=== PATIENT | female | born 1960 | race Caucasian/White ===

== ENCOUNTER 2016-10-14 07:20 | Outpatient (RCR) | payer MEDICARE, MEDICAID ==
[~2016-10-14] VITALS: Ht 30.5 cm; Wt 0.5 kg
[~2016-10-14 07:20] MED LIST: ALBUTEROL2.5 MG/3 M INH; ATIVAN2 MG ORAL; ATIVAN2 MG/1 ML IV; BENADRYL50 MG ORAL; CAL MAG ZINC +1 EACH PO; COLACE100 MG ORAL; COLACE250 MG ORAL; DIOVAN80 MG ORAL; EPIPEN 2-P0.3 MG/0.3 IM; ESTRADIOL0.5 MG PO; KEPPRA500 MG ORAL; LISINOPRIL10 MG ORAL; NEXIUM40 MG ORAL; NITROFURANTOIN100 M2 ORAL; NORETHINDRONE0.35 MG PO; PHENAZOPYRIDIN100 MG ORAL; TOPIRAMATE25 MG ORAL; TRAZODONE HCL100 MG ORAL; TRAZODONE HCL150 MG ORAL; TRILEPTAL150 MG ORAL; UNOBMED; ZANTAC150 MG ORAL
[2016-10-14] MEDS ORDERED: NS 550ML IV ONE (07:21)
[2016-10-14] MEDS ORDERED: Succinylcholine 20mg/ml 10ml vial ONE (07:21)
[2016-10-14] MEDS ORDERED: Methohexital Sodium Syr 100mg/10ml IVP ONE (07:21)
[2016-10-14] MEDS ORDERED: Diazepam 10mg/2ml Inj ONE (07:21)
[2016-10-14] MEDS ORDERED: Norco 5mg/325mg tab ONE (07:21)
== END 2016-10-20 | disposition home or self-care (01) ==
LOC: ECT 07:20
DX: F33.2 Major depressive disorder, recurrent severe without psychotic features (principal); F34.1 Dysthymic disorder; F60.9 Personality disorder, unspecified
CPT/HCPCS: 90870; J0330; J3360; J7040

== ENCOUNTER 2016-10-28 10:53 | Emergency (ER) | payer MEDICARE, OTHER ==
[~2016-10-28] VITALS: Ht 172.7 cm; Wt 77.1 kg
[2016-10-28 11:31] VITALS: BP 164/80
--- NOTE | 2016-10-28 12:15 | Emergency Room Report ---
History of Present Illness General Chief Complaint: Multiple Trauma/Fall Source: Patient Present Illness HPI Patient reports that she slipped and fell around 9 AM today. Plan on her right forearm. And then rolled back onto her right shoulder and struck the back of her head on a pole. She denies shortness of breath, dizziness or prodrome of syncope prior to the fall, states this is mechanical, slipped on wet ground as it has been raining today. She complains of pain in the right forearm, as well as pain in the right wrist with movement of fingers or wrist. States that there is some mild discomfort in her shoulder as well as pain in the back of her head where she hit the ground. There was no loss of consciousness and there was no nausea vomiting or shakes or dizziness, headache reported. Allergies: Coded Allergies: OXCARBAZEPINE (Verified Allergy, Severe, Rash, 12/05/15) sob CEPHALEXIN (Verified Allergy, Intermediate, Rash, 06/01/16) Itching The patient was put onto this medication due to UTI. The patient broke out in a rash and itcing all over her body CARBAMAZEPINE (Verified Allergy, Mild, Rash, 08/23/15) CLINDAMYCIN (Verified Allergy, Mild, Rash, 08/23/15) ERYTHROMYCIN BASE (Verified Allergy, Mild, Rash, 08/23/15) PENICILLINS (Verified Allergy, Mild, Rash, 08/23/15) PROCHLORPERAZINE (Verified Allergy, Mild, Shortness of Breath, 08/23/15) RASH SULFA (SULFONAMIDE ANTIBIOTICS) (Verified Allergy, Mild, Rash, 08/23/15) ASPIRIN (Unverified Allergy, Unknown, 03/19/16) Uncoded Allergies: BEES,WASPS (Allergy, Mild, Shortness of Breath, 08/23/15) HIVES Patient History Limited by: language barrier Past Medical History: see triage record Social History: Denies: alcohol use, smoking : 0 Para: 0 Immunizations: UTD Reviewed Nursing Documentation: PMH: Agreed Nursing Documentation-PMH Hx Hypertension: No Hx Pacemaker: No Hx Asthma: Yes Hx COPD: Yes Hx Diabetes: No Hx Cancer: No Hx Gastrointestinal Problems: No Hx Dialysis: No Hx Neurological Problems: No Hx Cerebrovascular Accident: No Hx Seizures: Yes Review of Systems Musculoskeletal: Reports: joint pain, joint swelling, muscle pain, muscle stiffness All Other Systems: negative except mentioned in HPI Physical Exam Vital Signs Date Time Temp Pulse Resp B/P Pulse Ox O2 Delivery O2 Flow Rate FiO2 10/28/16 11:15 99.1 113 16 164/80 97 Room Air Sp02 EP Interpretation: reviewed, abnormal - tachycardia General Appearance: well appearing, no apparent distress, alert Head: atraumatic Eyes: bilateral eye normal inspection ENT: normal ENT inspection, hearing grossly normal, normal voice Neck: normal inspection, full range of motion, supple, no bony tend Respiratory: normal inspection, lungs clear, normal breath sounds, no respiratory distress, no retraction, no wheezing Cardiovascular #1: no edema, tachycardia Gastrointestinal: normal inspection, normal bowel sounds, non tender, soft, no guarding, no hernia Genitourinary: no CVA tenderness Musculoskeletal: back normal, normal range of motion, tender - on palpation of the right forearm, mild swelling and abrasion on lateral aspect aprpeciated., no deformity, goof sensation and pulses distally. Neurologic: normal inspection, alert, responsive, speech normal Psychiatric: normal inspection, judgement/insight normal, mood/affect normal Skin: normal inspection, normal color, no rash Medical Decision Making Diagnostic Impression: Primary Impression: Multiple injuries due to trauma Additional Impressions: Fall Forearm abrasion Forearm injuries ER Course Patient here with mechanical fall, she is history of seizures but did not appear to have a seizure prior to the fall. Some bruising, abrasion to the right forearm but no obvious deformity, neurovascularly intact. We'll do some screening x-rays of the forearm and wrist. Provide pain control, sling and ice to the area. Disposition based on x-ray with results. X-rays demonstrate no significant soft tissue swelling, fracture, deformity, subluxation. Patient will be given a sling for comfort, as well as treated with ice, ibuprofen and rest. Patient given discharge summary as well as prescription for ibuprofen and followup. Other X-Ray Diagnostic Results Other X-Ray Diagnostic Results : X-Ray Ordered: hand and forearm Date: Oct 28, 2016 Time: 13:14 EP Interpretation: Yes Findings: no fractures, no dislocation, no soft tissue swelling Number of Views: 4 Reevaluation Time: 13:13 Last Vital Signs Date Time Temp Pulse Resp B/P Pulse Ox O2 Delivery O2 Flow Rate FiO2 10/28/16 11:31 99.1 16 164/80 97 Room Air 10/28/16 11:15 113 Status: improved Disposition: HOME, SELF-CARE Condition: Stable Scripts Ibuprofen* (MOTRIN*) 600 Mg Tablet 600 MG ORAL Q6H Y for For Pain, #30 TAB Prov: Hayder Biswas MD 10/28/16 Referrals: NON PHYSICIAN (PCP) Hayder Biswas MD Oct 28, 2016 12:15
[2016-10-28] MEDS ORDERED: IBUPROFEN600 MG ORAL (13:12)
[2016-10-28 13:27] VITALS: BP 139/87
[2016-10-28 13:34] VITALS: BP 139/87
--- NOTE | 2016-10-28 13:55 | Diagnostic Imaging Report ---
Indications: Fall, right wrist trauma, pain Technique: 3 views right wrist. Findings: Comparison: None No fracture, dislocation, joint space widening , surrounding soft tissue swelling/foreign body/other abnormality, or other acute changes are identified. IMPRESSION: No evidence of acute injury to the right wrist.
--- NOTE | 2016-11-10 14:10 | Diagnostic Imaging Report ---
Indications: Fall, right forearm trauma, pain Technique: 2 views right forearm. Findings: Comparison: None No fracture, dislocation, joint space widening or effusion , surrounding soft tissue swelling/foreign body/gas, or other acute changes are identified. IMPRESSION: No evidence of acute injury to the right forearm.
== END 2016-10-28 13:35 | disposition home or self-care (01) ==
LOC: EMR 11:30
DX: S50.811A Abrasion of right forearm, initial encounter (principal); M25.531 Pain in right wrist; R51 Headache; W19.XXXA Unspecified fall, initial encounter; Y93.9 Activity, unspecified; Y92.9 Unspecified place or not applicable; Z88.6 Allergy status to analgesic agent; Z88.2 Allergy status to sulfonamides; Z91.030 Bee allergy status
CPT/HCPCS: 99283

== ENCOUNTER 2016-11-09 06:08 | Outpatient (RCR) | payer MEDICARE, MEDICAID ==
--- NOTE | 2016-10-21 14:15 | IOP Daily Group Progress Note ---
IOP Daily Group Progress Note Treatment Plan/Target Problem: Date: Oct 21, 2016 Problem: depression Group Reflections - Wednesday: group 1 (9:40am-10:25am) Therapy Focus/Approach of Group: process Goal(s) of Group: identify mood, verbalize current thoughts and mood Observations: anxious, attentive, engaged, open, participated Staff Intervention: assessed for safety/suicidality, assessed pt's current mood , facilitated discussion Staff Intervention: Process: Therapist asked patients to share their mood today, and any thoughts/ concerns they may have. Therapist also provided a safe place for patients to express themselves. Therapist also assessed for SI, HI, and safety. Response/Progress Noted: Pt reports she feels "agitated, anxious and sad" about her housing situation. She doesn't feel she can trust the people who are responsible for her housing situation, but didn't want to share more about it. Donna Gutierrez Oct 21, 2016 14:15
[~2016-11-09] VITALS: Ht 172.7 cm; Wt 64.0 kg
[~2016-11-09 06:08] MED LIST changes: +IBUPROFEN600 MG ORAL
[2016-11-09] MEDS ORDERED: Succinylcholine 20mg/ml 10ml vial ONE (06:09)
[2016-11-09] MEDS ORDERED: Norco 5mg/325mg tab ONE (06:09)
[2016-11-09] MEDS ORDERED: Diazepam 10mg/2ml Inj ONE (06:09)
[2016-11-09] MEDS ORDERED: NS 550ML IV ONE (06:09)
[2016-11-09] MEDS ORDERED: Methohexital Sodium Syr 100mg/10ml IVP ONE (06:09)
[2016-11-09] MEDS ORDERED: Norco 5mg/325mg tab ORAL PRN (08:59)
--- NOTE | 2016-11-11 12:56 | IOP Daily Group Progress Note ---
IOP Daily Group Progress Note Treatment Plan/Target Problem: Date: Nov 11, 2016 Problem: depression Group Reflections - Wednesday: group 1 (9:40am-10:25am) Therapy Focus/Approach of Group: process Goal(s) of Group: identify mood, verbalize current thoughts and mood Observations: attentive, engaged, fidgety, open, participated spontaneously, positive mood, smiled when appropriate Staff Intervention: assessed for safety/suicidality, assessed pt's current mood , facilitated discussion Staff Intervention: Process: Therapist asked patients to share their mood and any thoughts/ concerns they might have on their mind. For patients experiencing a negative mood, therapist asked what might help improve their mood. Therapist assessed for SI, HI, and safety. Response/Progress Noted: Pt reports she feels "very glad to be here today". She also shared, "I'm doing my best to contain my energy...I'm managing it as it needs to be. She had ECT treatment earlier this week and feels energized and "good" as a result. She was concerned for and encouraging of others as they shared. Donna Gutierrez Nov 11, 2016 12:56
--- NOTE | 2016-11-12 14:34 | IOP Daily Group Progress Note ---
IOP Daily Group Progress Note Treatment Plan/Target Problem: Date: Nov 12, 2016 Problem: depression Group Reflections - : group 1 (9:40am-10:25am) Therapy Focus/Approach of Group: process Goal(s) of Group: identify mood, verbalize current thoughts and mood Observations: attentive, engaged, open, participated spontaneously, positive mood, smiled when appropriate Staff Intervention: assessed for safety/suicidality, assessed pt's current mood , facilitated discussion Staff Intervention: Process: Therapist asked patients to share their mood and any thoughts/ concerns they might have on their mind. For patients experiencing a negative mood, therapist asked, what might help improve their mood. Therapist also asked a follow up question of, what gives your life meaning? Therapist assessed for SI, HI, and safety. Response/Progress Noted: Pt reports she "feels good, I'm happy to be here, the tammy is beautiful and the breeze feels good." Pt maintained a positive mood throughout the group. 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
--- NOTE | 2016-11-26 10:58 | IOP Daily Group Progress Note ---
IOP Daily Group Progress Note Treatment Plan/Target Problem: Date: Oct 21, 2016 Problem: impaired thoughts Program: reflections Group Reflections - Wednesday: group 3 (11:30am-12:15pm) Therapy Focus/Approach of Group: symptoms Goal(s) of Group: coping tools for symptoms, symptom management Observations: engaged, open, participated Staff Intervention: assessed for safety/suicidality, assessed pt's current mood , facilitated discussion, prompted pt Response/Progress Noted: Pt participated in a CBT (Cognitive Behavioral Therapy) exercise, which again focused on 'Gratitude'. The Pt was able to verbalize one phrase out of a list that touched them the most, which allowed the Pt to feel fewer symptoms of depression. TRISTIN NICOLE MANUFACTURING LEADER Nov 26, 2016 10:58
--- NOTE | 2016-11-26 11:10 | IOP Daily Group Progress Note ---
IOP Daily Group Progress Note Treatment Plan/Target Problem: Date: Oct 21, 2016 Problem: depression Program: reflections Group Reflections - Wednesday: group 2 (10:35am-11:20am) Therapy Focus/Approach of Group: skills Goal(s) of Group: explore relationships to family, identify activities to improve mood, reminiscing to improve mood Observations: engaged, open, participated Staff Intervention: assessed for safety/suicidality, assessed pt's current mood , facilitated discussion, prompted reminiscence Response/Progress Noted: Pt actively participated in a psychoeducational group led by the Therapist on the topic of their belief systems drawn from the quiz developed by [facility] titled, "How Healthy are my Core Beliefs". The exercise helped the pt removed address negative messages they received as a child and challenged the inner critic in order to redirect these messages into something more positive over time. The exercise reframed the pt's focus which allowed for a shift in their mood in a more productive manner. TRISTIN NICOLE Nov 26, 2016 11:10
== END 2016-11-17 | disposition home or self-care (01) ==
LOC: ECT 06:08
DX: F33.2 Major depressive disorder, recurrent severe without psychotic features (principal)
CPT/HCPCS: 90870; J0330; J3360; J7040

== ENCOUNTER 2016-12-07 05:27 | Outpatient (RCR) | payer MEDICARE, MEDICAID ==
[~2016-12-07] VITALS: Ht 172.7 cm; Wt 64.0 kg
[2016-12-07] MEDS ORDERED: Succinylcholine 20mg/ml 10ml vial ONE (05:28)
[2016-12-07] MEDS ORDERED: Methohexital Sodium Syr 100mg/10ml IVP ONE (05:28)
[2016-12-07] MEDS ORDERED: Norco 5mg/325mg tab ONE (05:28)
[2016-12-07] MEDS ORDERED: Diazepam 10mg/2ml Inj ONE (05:28)
[2016-12-07] MEDS ORDERED: NS 550ML IV ONE (05:28)
[2016-12-07] MEDS ORDERED: Norco 5mg/325mg tab ORAL PRN (08:33)
[2016-12-07] MEDS ORDERED: Atropine Sulfate 0.4mg/ml inj IVP PRN (08:33)
--- NOTE | 2016-12-18 13:56 | IOP Daily Group Progress Note ---
IOP Daily Group Progress Note Treatment Plan/Target Problem: Date: Dec 18, 2016 Problem: depression Group Reflections - Wednesday: group 1 (9:40am-10:25am) Therapy Focus/Approach of Group: process Goal(s) of Group: communication skills, identify mood, impact of current issues on mood, positive thoughts to improve mood, verbalize current thoughts and mood Observations: attentive, constricted affect, depressed mood, difficulty engaging in discussion, responded to prompts Staff Intervention: assessed for safety/suicidality, assessed pt's current mood , encouraged patient participation, clarified pt issues, facilitated discussion , prompted pt, provided psycho-education, provided support, summarized, validated feelings Staff Intervention: Process: Therapist has patients identify current mood and feelings. Therapist provided individuals a safe and comfortable place where they can work The pt was attentive but slightly withdrawn, Pt had no self disclosure today despite several prompts from senior health physics technician. This was senior health physics technician's work with this pt in group, LORA GANN Dec 18, 2016 13:56
== END 2016-12-18 | disposition home or self-care (01) ==
LOC: ECT 05:27
DX: F33.2 Major depressive disorder, recurrent severe without psychotic features (principal)
CPT/HCPCS: 90870; J0330; J3360; J7040

== ENCOUNTER 2016-12-23 08:54 | Outpatient (RCR) | payer MEDICARE, MEDICAID ==
[~2016-12-23] VITALS: Ht 172.7 cm; Wt 64.0 kg
[2016-12-23] MEDS ORDERED: Norco 5mg/325mg tab ONE (08:55)
[2016-12-23] MEDS ORDERED: Diazepam 10mg/2ml Inj ONE (08:55)
[2016-12-23] MEDS ORDERED: Succinylcholine 20mg/ml 10ml vial ONE (08:55)
[2016-12-23] MEDS ORDERED: NS 550ML IV ONE (08:55)
[2016-12-23] MEDS ORDERED: Methohexital Sodium Syr 100mg/10ml IVP ONE (08:55)
[2016-12-23] MEDS ORDERED: Norco 5mg/325mg tab ORAL PRN (12:30)
--- NOTE | 2016-12-25 16:08 | IOP Daily Group Progress Note ---
IOP Daily Group Progress Note Treatment Plan/Target Problem: Date: Dec 25, 2016 Problem: depression Program: reflections Group Reflections - Wednesday: group 1 (9:40am-10:25am) Therapy Focus/Approach of Group: process Goal(s) of Group: communication skills, coping tools for symptoms, identify mood, impact of current issues on mood, verbalize current thoughts and mood Observations: attentive, constricted affect, participated Staff Intervention: encouraged patient participation, facilitated discussion, prompted pt, provided support, summarized Response/Progress Noted: Process: Therapist has patients identify current mood and feelings. Therapist provided individuals a safe and comfortable place where they can work out problems and emotional issues. Pt was attentive and gave supportive feedback to peers but no self disclosure despite prompts. LORA GANN Dec 25, 2016 16:08
--- NOTE | 2016-12-30 14:21 | IOP Daily Group Progress Note ---
IOP Daily Group Progress Note Treatment Plan/Target Problem: Date: Dec 30, 2016 Problem: impaired thoughts Program: reflections Group Reflections - Wednesday: group 1 (9:40am-10:25am) Therapy Focus/Approach of Group: process Goal(s) of Group: assertiveness skills, decreasing isolation Observations: engaged Staff Intervention: assessed for safety/suicidality, assessed pt's current mood Staff Intervention: In a peculiar but generally appropriate form of attention seeking, pt. puts pictures of her grandfather on display in the group. She states this is in honor of Passover. She is invited to tell the Passover story, but declines. Response/Progress Noted: Pt. reports being in generally good spirits. HAMIDA FISH Dec 30, 2016 14:21
--- NOTE | 2017-01-07 16:34 | IOP Daily Group Progress Note ---
IOP Daily Group Progress Note Treatment Plan/Target Problem: Date: Jan 07, 2017 Problem: depression Program: reflections Group Reflections - : group 2 (10:35am-11:20am) Therapy Focus/Approach of Group: skills Goal(s) of Group: communication skills, identify activities to improve mood, socialization skills, support systems Observations: anxious, attentive, depressed mood, participated Staff Intervention: encouraged patient participation, facilitated discussion, normalized feelings, provided psycho-education, provided support, summarized, validated feelings Staff Intervention: Skills Group. Group discussion on addiction, triggers, 12 step meeting , support network and coping skills. The pt was attentive and provided supportive feedback to her peers in group> LORA GANN Jan 07, 2017 16:34
--- NOTE | 2017-01-07 18:04 | IOP Daily Group Progress Note ---
IOP Daily Group Progress Note Treatment Plan/Target Problem: Date: Jan 07, 2017 Problem: impaired thoughts Program: reflections Group Reflections - : group 3 (11:30am-12:15pm) Therapy Focus/Approach of Group: symptoms Goal(s) of Group: anger management, anxiety reduction, assertiveness skills, communication skills, coping tools for symptoms, coping with change, counteracting negative thinking, identify activities to improve mood, identifying strengths, impact of current issues on mood, improving self esteem, increasing independence, interpersonal relationships, positive thoughts to improve mood, socialization skills, stress reduction, support systems, verbalize current thoughts and mood Observations: anxious, attentive, blunted, concrete thinking, depressed mood, engaged, focused, nervous, open, participated spontaneously, pressured speech, responded to prompts Staff Intervention: assessed for safety/suicidality, assessed pt's current mood , assisted identifying coping tools, assisted with problem solving, encouraged patient participation, facilitated discussion, normalized feelings, prompted pt , provided psycho-education, provided reassurance, provided support, reflective listening, reframed, summarized, validated feelings Staff Intervention: Pt participated in Symptoms Management Group today. She was attentive, open, and mod-active in her involvement in group discussion of Anxiety about Changes on our lives. Pt says that one of her common problems is feeling Anger about changes in her life and health over which she feels she has little control. The group discussed how this can frequently lead to fear based Anxiety over how to cope. Pt shared mod openly and, also gave supportive feedback to other group members. HAMIDA LYNN Jan 07, 2017 18:04
--- NOTE | 2017-01-13 13:58 | IOP Daily Group Progress Note ---
IOP Daily Group Progress Note Treatment Plan/Target Problem: Date: Jan 13, 2017 Problem: depression Program: reflections Group Reflections - Wednesday: group 2 (10:35am-11:20am) Therapy Goal(s) of Group: explore relationships to family, identifying strengths Observations: anxious, attentive, depressed mood, focused Staff Intervention: provided psycho-education, provided reassurance, provided redirection Staff Intervention: Pt spoke about how she avoids dealing with issues resulting from life changes and how she uses group to face some of her issues, such as isolation and neglecting her social needs at times. Assisted pt in feelings her feelings in a safe space so as to orientate herself in herself with her feelings and emotions and not be consumed by them but to stand more firmly in them and take her bearing from them. Response/Progress Noted: " Art helps me cope." SERENA RAMIREZ Jan 13, 2017 13:58
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
--- NOTE | 2017-01-14 14:45 | IOP Daily Group Progress Note ---
IOP Daily Group Progress Note Treatment Plan/Target Problem: Date: Jan 14, 2017 Problem: depression Program: reflections Group Reflections - : group 2 (10:35am-11:20am) Therapy Goal(s) of Group: coping tools for symptoms, identifying strengths, identify triggers to symptoms Observations: engaged, focused, restless, tangential thoughts Staff Intervention: provided psycho-education, provided reassurance, validated feelings Staff Intervention: Explored have to deal with difficult people in pts life, also explored identifying healthy patterns as well as toxic patterns and exchanges. Worked on plans and strategies to set and maintain more healthy boundaries. Also processed some painful feelings from the past that pt has been avoiding that flare up at times recently. Response/Progress Noted: " At times have a hard time making sense out of my past." SERENA RAMIREZ Jan 14, 2017 14:45
--- NOTE | 2017-01-14 14:47 | IOP Daily Group Progress Note ---
IOP Daily Group Progress Note Treatment Plan/Target Problem: Date: Jan 14, 2017 Problem: depression Program: reflections Group Reflections - : group 3 (11:30am-12:15pm) Therapy Goal(s) of Group: anxiety reduction, identify mood Observations: engaged, focused Staff Intervention: provided psycho-education, provided support, reframed Staff Intervention: Explored have to deal with difficult people in pts life, also explored identifying healthy patterns as well as toxic patterns and exchanges. Worked on plans and strategies to set and maintain more healthy boundaries. Also processed some painful feelings from the past that pt has been avoiding that flare up at times recently. Response/Progress Noted: "Others stories my me understand my self better and find some peace." SERENA RAMIREZ Jan 14, 2017 14:47
--- NOTE | 2017-01-15 14:46 | IOP Daily Group Progress Note ---
IOP Daily Group Progress Note Treatment Plan/Target Problem: Date: Jan 15, 2017 Problem: depression Program: reflections Group Reflections - Wednesday: group 1 (9:40am-10:25am) Therapy Focus/Approach of Group: process Goal(s) of Group: explore relationships to family, identify activities to improve mood, identify mood, impact of current issues on mood, interpersonal relationships, positive thoughts to improve mood, verbalize current thoughts and mood Observations: anxious, concrete thinking, constricted affect, participated Staff Intervention: assessed for safety/suicidality, assessed pt's current mood , clarified pt issues, facilitated discussion, provided support, reflective listening, validated feelings Staff Intervention: Process: Therapist has patients identify current mood and feelings. Therapist provided individuals a safe and comfortable place where they can work out problems and emotional issues. Pt stated "I am feeling really good today and grateful for just being here. I am looking forward to enjoying this weekend" LORA GANN Jan 15, 2017 14:46
--- NOTE | 2017-01-15 15:32 | IOP Daily Group Progress Note ---
IOP Daily Group Progress Note Treatment Plan/Target Problem: Date: Jan 15, 2017 Problem: depression Program: reflections Group Reflections - Wednesday: group 2 (10:35am-11:20am) Therapy Goal(s) of Group: identify mood, identify triggers to symptoms, improving self esteem, verbalize current thoughts and mood Observations: made insightful comments, positive mood, responded to prompts, smiled when appropriate Staff Intervention: provided psycho-education, provided support, validated feelings Staff Intervention: Pt spoke about what some of his interest are and how he joseph now and what worked for him in the pass. Response/Progress Noted: " I play tennies, that help me deal with the stress that comes up some times. " SERENA RAMIREZ Jan 15, 2017 15:32
--- NOTE | 2017-01-15 15:46 | IOP Daily Group Progress Note ---
IOP Daily Group Progress Note Treatment Plan/Target Problem: Date: Jan 15, 2017 Problem: depression, impaired thoughts Group Reflections - Wednesday: group 2 (10:35am-11:20am) Therapy Goal(s) of Group: anxiety reduction, identify triggers to symptoms, reminiscing to improve mood, verbalize current thoughts and mood Observations: anxious, distracted, open, participated Staff Intervention: normalized feelings, provided psycho-education, provided reassurance, validated feelings Staff Intervention: pt gave support and feedback to group members and received feedback and support from group members and section leader screen printing. Response/Progress Noted: " I have many things that I want to do with my life, one of them is to live long." SERENA RAMIREZ Jan 15, 2017 15:46
--- NOTE | 2017-01-15 15:48 | IOP Daily Group Progress Note ---
IOP Daily Group Progress Note Treatment Plan/Target Problem: Date: Jan 15, 2017 Problem: depression Program: reflections Group Reflections - Wednesday: group 3 (11:30am-12:15pm) Therapy Goal(s) of Group: identify mood, improving self esteem, symptom management Observations: focused Staff Intervention: provided psycho-education, validated feelings Staff Intervention: pt gave support and feedback to group members and received feedback and support from group members and insight leader. Response/Progress Noted: " I do not want to be forgotten" insight leader and group members pointed out to pt how unique and dear she is. SERENA RAMIREZ Jan 15, 2017 15:48
== END 2017-01-17 | disposition home or self-care (01) ==
LOC: ECT 08:54
DX: F33.2 Major depressive disorder, recurrent severe without psychotic features (principal)
CPT/HCPCS: 90870; J0330; J3360; J7040

== ENCOUNTER 2017-01-20 05:22 | Outpatient (RCR) | payer MEDICARE, MEDICAID ==
--- NOTE | 2017-01-18 15:27 | IOP Daily Group Progress Note ---
IOP Daily Group Progress Note Treatment Plan/Target Problem: Date: January 18, 2017 Problem: depression Program: reflections Group Reflections - Wednesday: group 2 (10:35am-11:20am) Therapy Goal(s) of Group: coping with change, goal setting Observations: focused, open, participated spontaneously Staff Intervention: provided reassurance, provided support, reframed Staff Intervention: clinical nurse leader and group members provided PT with feedback and support in processing feeling from the past that distress her at times and interfere with with her well being. Pt provide other group members with useful, insightful and empathetic feedback and support. Provide pt with the emotional space and environment to access and process painful feelings and emotions that are connect with deep rooted past issues she continues to struggle with suc as feeling of inadequacy and sadness very other miss-perception of her over the years. Response/Progress Noted: " I do not brandi others view of me as fact, the way I sometimes used to" SERENA RAMIREZ January 18, 2017 15:27
--- NOTE | 2017-01-18 15:29 | IOP Daily Group Progress Note ---
IOP Daily Group Progress Note Treatment Plan/Target Problem: Date: January 18, 2017 Problem: depression Program: reflections Group Reflections - Wednesday: group 3 (11:30am-12:15pm) Therapy Goal(s) of Group: assertiveness skills, identify triggers to symptoms Observations: disengaged, focused, open Staff Intervention: assisted with problem solving, provided psycho-education, provided reassurance, provided support, reframed, validated feelings Staff Intervention: donor services team leader and group members provided PT with feedback and support in processing feeling from the past that distress her at times and interfere with with her well being. Pt provide other group members with useful, insightful and empathetic feedback and support. Provide pt with the emotional space and environment to access and process painful feelings and emotions that are connect with deep rooted past issues she continues to struggle with such as feelings sadness. Response/Progress Noted: " I have more ways to deal with my feeling and to get my self through my moods in a heathy way, such as CBT and reframing as well as rational self-talk. SERENA RAMIREZ January 18, 2017 15:29
[~2017-01-20] VITALS: Ht 172.7 cm; Wt 64.0 kg
[2017-01-20] MEDS ORDERED: Succinylcholine 20mg/ml 10ml vial ONE (05:23)
[2017-01-20] MEDS ORDERED: Diazepam 10mg/2ml Inj ONE (05:23)
[2017-01-20] MEDS ORDERED: Methohexital Sodium Syr 100mg/10ml IVP ONE (05:23)
[2017-01-20] MEDS ORDERED: Norco 5mg/325mg tab ONE (05:23)
[2017-01-20] MEDS ORDERED: NS 550ML IV ONE (05:23)
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
--- NOTE | 2017-01-22 15:18 | IOP Daily Group Progress Note ---
IOP Daily Group Progress Note Treatment Plan/Target Problem: Date: January 22, 2017 Problem: depression, impaired thoughts Group Reflections - Wednesday: group 2 (10:35am-11:20am) Therapy Goal(s) of Group: coping tools for symptoms, explore relationships to family, identify activities to improve mood, identifying strengths, identify triggers to symptoms, impact of current issues on mood Observations: agitated, animated, anxious, guarded, irritable, restless Staff Intervention: provided support, reframed Staff Intervention: Group members spoke about what people are most important to them and what they most deeply desires to say to them. Pt said that she has no one in her life and that she tried to kill herself twice before. Pt spoke about how people stone lathe operator her on how she looks and acts and how they talk behind her back. sports leadership instructor and group members attempted to provide patient with support and reassurance and compliment her on her style. However pt perceived the group support as making things worse. Response/Progress Noted: "I ddi not want to come today, I wake up in a bad mood. Everything is making it worse." SERENA RAMIREZ January 22, 2017 15:18
--- NOTE | 2017-01-28 14:37 | IOP Daily Group Progress Note ---
IOP Daily Group Progress Note Treatment Plan/Target Problem: Date: January 28, 2017 Problem: depression, impaired thoughts Group Reflections - : group 2 (10:35am-11:20am) Therapy Goal(s) of Group: communication skills, coping with change, goal setting, identifying strengths, improving self esteem, reminiscing to improve mood Observations: guarded, open, participated spontaneously, positive mood Staff Intervention: provided redirection, provided support, reframed Staff Intervention: Patient discussed what is most dear and meaningful to her. How does she nurture it and how does she as he stay on course. Response/Progress Noted: " the [place]. My mind is just free and at peace there." SERENA RAMIREZ January 28, 2017 14:37
--- NOTE | 2017-01-28 16:28 | IOP Daily Group Progress Note ---
IOP Daily Group Progress Note Treatment Plan/Target Problem: Date: January 28, 2017 Problem: depression Group Reflections - : group 3 (11:30am-12:15pm) Therapy Focus/Approach of Group: symptoms Goal(s) of Group: coping tools for symptoms, coping with change, explore relationships to family, impact of current issues on mood, interpersonal relationships, stress reduction, symptom management Observations: blunted, depressed mood, disengaged, flat affect, lethargic Staff Intervention: assessed for safety/suicidality, assessed pt's current mood , facilitated discussion Staff Intervention: Therapist introduced himself to the group, generated a discussion about current mood and feelings, and queried what irvin members to the group and how it helps them. Therapist provided a safe environment for self-expression and assessed for SI, HI, and safety. Response/Progress Noted: Patient shared she has been dealing with "depression and anxiety all my life" and that she has been "in and out of programs since the age of 7." Patient disclosed she received a diagnosis of autism spectrum disorder, after being "misdiagnosed for years." Michael Moon HEARING AIDE TECHNICIAN January 28, 2017 16:28
--- NOTE | 2017-01-29 14:03 | IOP Daily Group Progress Note ---
IOP Daily Group Progress Note Treatment Plan/Target Problem: Date: January 29, 2017 Problem: depression Program: reflections Group Reflections - Wednesday: group 2 (10:35am-11:20am) Therapy Goal(s) of Group: coping tools for symptoms, coping with change, identifying strengths, identify triggers to symptoms, interpersonal relationships Observations: concrete thinking, distracted Staff Intervention: provided psycho-education, provided redirection, reflective listening Staff Intervention: Explored some of the roots of the symptoms that pt is suffering from and struggling with, such as depression and anxiety. account leader and group members provide PT with the emotional attunement, room and support to access and process a portion of some of the feelings that are at the core of pt symptoms and update some of the accompanying schemas. Response/Progress Noted: " Only when I am dancing or at the [employer] do I feel at ease." SERENA RAMIREZ January 29, 2017 14:03
--- NOTE | 2017-01-29 14:04 | IOP Daily Group Progress Note ---
IOP Daily Group Progress Note Treatment Plan/Target Problem: Date: January 29, 2017 Problem: depression Program: reflections Group Reflections - Wednesday: group 1 (9:40am-10:25am) Therapy Focus/Approach of Group: process Goal(s) of Group: identify mood, impact of current issues on mood, interpersonal relationships, verbalize current thoughts and mood Observations: concrete thinking, constricted affect, depressed mood, participated Staff Intervention: assessed for safety/suicidality, assessed pt's current mood , clarified pt issues, facilitated discussion, provided support, reflective listening Staff Intervention: Process: Therapist has patients identify current mood and feelings. Therapist provided individuals a safe and comfortable place where they can work out problems and emotional issues. Therapist encouraged patients to provide feedback and support to each other. The pt stated "I am feeling better today but this has been a very difficult week for me" LORA GANN January 29, 2017 14:04
--- NOTE | 2017-01-29 14:07 | IOP Daily Group Progress Note ---
IOP Daily Group Progress Note Treatment Plan/Target Problem: Date: January 29, 2017 Problem: depression Group Reflections - Wednesday: group 3 (11:30am-12:15pm) Therapy Goal(s) of Group: coping with change, increasing independence, symptom management Observations: attentive, focused, open, sad Staff Intervention: prompted pt, reflective listening, validated feelings, validated progress Staff Intervention: Pt continued to explored some of the roots of the symptoms that pt is suffering from and struggling with, such as depression and anxiety. clinical trial leader and group members provide PT with the emotional attunement, room and support to access and process a portion of some of the feelings that are at the core of pt symptoms and update some of the accompanying schemas. Response/Progress Noted: " I have to sometimes tell myself that it is not as bad as I make it out to be and Practice more active and positive self talk." SERENA RAMIREZ January 29, 2017 14:07
--- NOTE | 2017-02-01 16:41 | IOP Daily Group Progress Note ---
IOP Daily Group Progress Note Treatment Plan/Target Problem: Date: February 01, 2017 Problem: depression Program: reflections Group Reflections - Wednesday: group 2 (10:35am-11:20am) Therapy Goal(s) of Group: anxiety reduction, coping tools for symptoms, coping with change, identifying strengths, reminiscing to improve mood, stress reduction Observations: anxious, blunted, fidgety, guarded Staff Intervention: provided redirection, provided support, taught relaxation skills, validated feelings, validated progress Staff Intervention: Group members explored how they were conditioned since childhood to push down painful feeling and issues; explore ways to talk feeling and issues out instead of acting them out or having them get our attention through symptoms. Also explored what issues and symptoms were by the holiday weekend. Response/Progress Noted: " I felt empty and lonely so i went to [facility] and irvin a heart in the sand. Someone played a song " every little thing will be alrigh" with there instrument and I felt the song was meant for me. and I started dancing. " SERENA RAMIREZ February 01, 2017 16:41
--- NOTE | 2017-02-01 16:44 | IOP Daily Group Progress Note ---
IOP Daily Group Progress Note Treatment Plan/Target Problem: Date: February 01, 2017 Problem: depression Group Reflections - Wednesday: group 3 (11:30am-12:15pm) Therapy Goal(s) of Group: coping tools for symptoms, counteracting negative thinking, decreasing isolation, establishing appropriate boundaries, explore relationships to family, identifying strengths, impact of current issues on mood , improving self esteem, support systems, weekend review Observations: disengaged, distracted, flat affect, withdrawn Staff Intervention: provided psycho-education, provided reassurance, provided technical support assistant Intervention: Group members explored how they were conditioned since childhood to push down painful feeling and issues; explore ways to talk feeling and issues out instead of acting them out or having them get our attention through symptoms. Also explored what issues and symptoms were by the holiday weekend. Response/Progress Noted: " Just feel empty at times, felt this way ever since I can remember." SERENA RAMIREZ February 01, 2017 16:44
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
--- NOTE | 2017-02-08 15:34 | IOP Daily Group Progress Note ---
IOP Daily Group Progress Note Treatment Plan/Target Problem: Problem: depression Program: reflections Group Reflections - Wednesday: group 2 (10:35am-11:20am) Therapy Goal(s) of Group: assertiveness skills, coping with change, establishing appropriate boundaries, identify activities to improve mood, identify mood, identify triggers to symptoms, socialization skills, stress reduction, support systems Observations: anxious, delusions, distracted, focused, manic, participated spontaneously Staff Intervention: assisted identifying coping tools, assisted with problem solving, clarified pt issues, prompted reminiscence, provided psycho-education, provided reassurance, reframed, set limits, summarized Staff Intervention: Pt explored what hurts her the most; what is she most hurt about, in pain about , what she what does not want to talk about but must in order for her to really deal with her pain and what mot deeply troubles her so that real emotional, development l and psychology, and social healing can occur, as well as take place in her life. Response/Progress Noted: " Sometime, I fear being so out of place, and people talking about me. ... and my temper at time, saying the wrong thing at the wrong time." SERENA RAMIREZ February 08, 2017 15:34
--- NOTE | 2017-02-08 15:37 | IOP Daily Group Progress Note ---
IOP Daily Group Progress Note Treatment Plan/Target Problem: Date: February 08, 2017 Problem: depression Program: reflections Group Reflections - Wednesday: group 3 (11:30am-12:15pm) Therapy Goal(s) of Group: coping tools for symptoms, decreasing isolation, identify activities to improve mood, identify triggers to symptoms, interpersonal relationships, reminiscing to improve mood Observations: anxious, depressed mood, distracted, focused, open, participated , participated spontaneously Staff Intervention: assisted with identifying symptoms, assisted with problem solving, prompted reminiscence, provided psycho-education, provided reassurance , validated feelings Staff Intervention: Pt explored what hurts her the most; what is she most hurt about, in pain about , what she what does not want to talk about but must in order for her to really deal with her pain and what mot deeply troubles her so that real emotional, development l and psychology, and social healing can occur, as well as take place in her life. Response/Progress Noted: "Just constantly being out of place, I can say that I am alright with it but sometimes how people look at me and treat me really hurts. The group is right, I am getting better at accepting my self." SERENA RAMIREZ February 08, 2017 15:37
[2017-02-12] MEDS ORDERED: Methohexital Sodium Syr 100mg/10ml IVP ONE (07:00)
[2017-02-12] MEDS ORDERED: Norco 5mg/325mg tab ONE (07:00)
[2017-02-12] MEDS ORDERED: Succinylcholine 20mg/ml 10ml vial ONE (07:00)
[2017-02-12] MEDS ORDERED: NS 550ML IV ONE (07:00)
[2017-02-12] MEDS ORDERED: Diazepam 10mg/2ml Inj ONE (07:00)
[2017-02-12] MEDS ORDERED: Norco 5mg/325mg tab ORAL PRN (08:35)
== END 2017-02-17 | disposition home or self-care (01) ==
LOC: ECT 05:22
DX: F33.2 Major depressive disorder, recurrent severe without psychotic features (principal)
CPT/HCPCS: 90870; J0330; J3360; J7040

== ENCOUNTER 2017-03-10 07:39 | Outpatient (RCR) | payer MEDICARE, MEDICAID ==
[~2017-03-10] VITALS: Ht 172.7 cm; Wt 64.0 kg
[2017-03-10] MEDS ORDERED: Norco 5mg/325mg tab ONE (07:40)
[2017-03-10] MEDS ORDERED: NS 550ML IV ONE (07:40)
[2017-03-10] MEDS ORDERED: Methohexital Sodium Syr 100mg/10ml IVP ONE (07:40)
[2017-03-10] MEDS ORDERED: Succinylcholine 20mg/ml 10ml vial ONE (07:40)
[2017-03-10] MEDS ORDERED: Diazepam 10mg/2ml Inj ONE (07:40)
[2017-03-10] MEDS ORDERED: Norco 5mg/325mg tab ORAL PRN (10:46)
--- NOTE | 2017-03-17 13:00 | IOP Daily Group Progress Note ---
IOP Daily Group Progress Note Treatment Plan/Target Problem: Problem: depression Group Reflections - Wednesday: group 2 (10:35am-11:20am) Therapy Focus/Approach of Group: process Goal(s) of Group: art therapy, goal setting, socialization skills Observations: depressed mood, participated, tearful Staff Intervention: assessed for safety/suicidality, assessed pt's current mood , encouraged patient participation, facilitated discussion, prompted pt, provided support, reflective listening, validated feelings Staff Intervention: Group members were encouraged to read the poem, "What is Success?" by Dane and were then asked to create artwork that reflected his or her own definition of success. Discussion followed. Response/Progress Noted: Lauren presented with a depressed mood. feels unsuccessful because she never had children. "I just wanted to pass my DNA a long & I can't." Patient feels everything is "unstable" in her life. Is frustrated with her living situation and expressed a desire to . Therapist assessed for suicidal thoughts and plan. Denies a need for inpatient treatment. Patient reports she can keep self safe, "but [place] sucks anyway." Became tearful when peer offered genuine compliments and explained why he liked Lauren. Therapist will continue to monitor patient's mood and ability to keep self safe. JIM ROONEY Mar 17, 2017 13:00
== END 2017-03-19 | disposition home or self-care (01) ==
LOC: ECT 07:39
DX: F33.2 Major depressive disorder, recurrent severe without psychotic features (principal)
CPT/HCPCS: 90870; J0330; J3360; J7040

== ENCOUNTER 2017-03-31 07:40 | Outpatient (RCR) | payer MEDICARE, MEDICAID ==
--- NOTE | 2017-03-21 20:31 | Reflections ---
02/25/2017 SUBJECTIVE: The patient is pleasant, calm and cooperative with interview. Follows directions. Denies any new complaints. MENTAL STATUS EVALUATION: Alert and oriented to self and situation. Mood is anxious. Affect is restricted. Thought process is linear. Cognition is intact. Impulse control, insight, and judgment is partially impaired. DIAGNOSIS: Major depression. PLAN: Continue with current management. Continue to monitor symptoms and behavior. Medications reviewed. Chart reviewed. Case discussed with staff. No new symptoms, sedation, or side effects. Otherwise, we will continue to monitor the case. Marc Rowan M.D. DR: RACQUEL JOB#: [id number] CC: ENIO
[~2017-03-31] VITALS: Ht 172.7 cm; Wt 64.0 kg
[2017-03-31] MEDS ORDERED: Norco 5mg/325mg tab ONE ×2 (07:41)
[2017-03-31] MEDS ORDERED: NS 550ML IV ONE ×2 (07:41)
[2017-03-31] MEDS ORDERED: Succinylcholine 20mg/ml 10ml vial ONE ×2 (07:41)
[2017-03-31] MEDS ORDERED: Methohexital Sodium Syr 100mg/10ml IVP ONE ×2 (07:41)
[2017-03-31] MEDS ORDERED: Diazepam 10mg/2ml Inj ONE ×2 (07:41)
[2017-03-31] MEDS ORDERED: Norco 5mg/325mg tab ORAL PRN (09:57)
== END 2017-04-19 | disposition home or self-care (01) ==
LOC: ECT 07:40
DX: F33.2 Major depressive disorder, recurrent severe without psychotic features (principal)
CPT/HCPCS: 90870; J0330; J3360; J7040

== ENCOUNTER 2017-04-28 04:52 | Outpatient (RCR) | payer MEDICARE, MEDICAID ==
[~2017-04-28] VITALS: Ht 172.7 cm; Wt 64.0 kg
[2017-04-28] MEDS ORDERED: Norco 5mg/325mg tab ONE (04:53)
[2017-04-28] MEDS ORDERED: NS 550ML IV ONE (04:53)
[2017-04-28] MEDS ORDERED: Methohexital Sodium Syr 100mg/10ml IVP ONE (04:53)
[2017-04-28] MEDS ORDERED: Succinylcholine 20mg/ml 10ml vial ONE (04:53)
[2017-04-28] MEDS ORDERED: Norco 5mg/325mg tab ORAL PRN (10:21)
--- NOTE | 2017-05-14 15:44 | IOP Daily Group Progress Note ---
IOP Daily Group Progress Note Treatment Plan/Target Problem: Date: May 14, 2017 Problem: depression Program: reflections Group - Wednesday: group 2 (10:35am-11:20am) Therapy Focus/Approach of Group: skills Goal(s) of Group: anxiety reduction, decreasing isolation, impact of current issues on mood, verbalize current thoughts and mood Observations: active listening skills, agitated, depressed mood, engaged, made insightful comments, negatively focused, participated, responded to prompts, smiled when appropriate Staff Intervention: assisted identifying coping tools, clarified pt issues, facilitated discussion, prompted pt, provided psycho-education, provided reassurance, provided support, reflective listening, summarized, validated feelings Staff Intervention: Therapist encouraged Pt to identify at least two negative feeling words and attempt to follow this up with the triggers and coping skills in order to counteract these emotions. Response/Progress Noted: Wednesday05-14-2017: (Group 2): *SKILLS GROUP/TRAUMA RECOVERY PART 1* The Pt actively participated in a psychoeducational group, the 1st half of the weekly PTSD (Posttraumatic Stress Disorder) / Trauma Recovery Group. The Cognitive Behavioral Therapy (CBT) exercise allowed the Pt to choose from a list of feeling words in order to pin-point any negative emotions they experience on a daily basis followed by identify the triggers of these emotions. The exercise benefited the Pt as evidenced by the Pt verbalizing, Depression and rage. TRISTIN NICOLE May 14, 2017 15:44
[2017-05-19] MEDS ORDERED: Succinylcholine 20mg/ml 10ml vial ONE (07:00)
[2017-05-19] MEDS ORDERED: Norco 5mg/325mg tab ONE (07:00)
[2017-05-19] MEDS ORDERED: Methohexital Sodium Syr 100mg/10ml IVP ONE (07:00)
[2017-05-19] MEDS ORDERED: NS 550ML IV ONE (07:00)
[2017-05-19] MEDS ORDERED: Norco 5mg/325mg tab ORAL PRN (08:32)
[2017-05-19] MEDS ORDERED: Atropine Sulfate 0.4mg/ml inj IVP PRN (08:32)
--- NOTE | 2017-05-19 13:39 | IOP Daily Group Progress Note ---
IOP Daily Group Progress Note Treatment Plan/Target Problem: Problem: impaired thoughts Group Reflections - Wednesday: group 2 (10:35am-11:20am) Therapy Focus/Approach of Group: process Goal(s) of Group: anxiety reduction, explore relationships to family, identifying strengths, socialization skills Observations: depressed mood, engaged, low energy, sad Staff Intervention: encouraged patient participation, facilitated discussion, provided support, validated feelings Staff Intervention: Therapist provided a handout on how one communicates and expresses love. Discussion followed. Group members were asked to draw or write about how they express love. Goal of group was to increase insight into one's own behaviors and increase insight into relationship dynamics. Response/Progress Noted: Lauren shared that giving gifts to others was important to her. "I like to buy someone a candy bar to let them know I was thinking about them throughout the day." Was able to share and work on her artwork. However, appeared depressed and low energy throughout group. Will continue helping patient identify and implement coping skills for her symptoms. JIM ROONEY May 19, 2017 13:39
== END 2017-05-20 | disposition home or self-care (01) ==
LOC: ECT 04:52
DX: F33.2 Major depressive disorder, recurrent severe without psychotic features (principal)
CPT/HCPCS: 90870; J0330; J3360; J7040

== ENCOUNTER 2017-05-21 13:48 | Outpatient (CLI) | payer MEDICARE, OTHER ==
--- NOTE | 2017-05-21 15:20 | Diagnostic Imaging Report ---
Indication: Back pain Technique: MRI examination of the Lumbar spine was performed in a 1.5 Shanita magnet. Sequences obtained include sagittal and axial T1 and T2 fast spin echo, and sagittal STIR. No IV gadolinium was given Comparison: none Findings: L4-5 there is narrowing and desiccation of the disc, mild in degree. There is a fairly wide based disc protrusion that involves the central, right paracentral and right lateral aspect of the disc resulting in narrowing of the right lateral recess and stenosis of the right neural foramen. There is visualized abutting and slightly compression of the exiting right L4 nerve root as well as the right traversing L5 nerve root. Moderate hypertrophy facets noted at this level. L5-S1 shows moderate disc narrowing and desiccation. There is a wide based circumferential disc bulge present this level. Moderate facet arthropathy is present. There is moderate narrowing of the left neural foramen and left lateral recess. The L1-2, L2-3, L3-4 discs appear normal. Mild hypertrophy of the facets noted at these levels. Bone marrow signal is normal. Alignment is normal. The distal visualized part of the spinal cord is unremarkable. The tip of the conus medullaris noted at T12. Impression: L4-5 right-sided broad-based disc protrusion narrowing the right lateral recess and neural foramen compressing the traversing right L5 nerve root and the exiting right L4 nerve root. Moderate facet arthropathy. Broad-based circumferential disc bulge L5-S1. Moderate facet arthropathy. Moderate left lateral recess/foraminal stenosis.
== END 2017-05-21 15:48 | disposition home or self-care (01) ==
LOC: MRI 13:48
DX: M54.16 Radiculopathy, lumbar region (principal)
CPT/HCPCS: 72148

== ENCOUNTER 2017-06-09 07:20 | Outpatient (RCR) | payer MEDICARE, MEDICAID ==
[~2017-06-09] VITALS: Ht 30.5 cm; Wt 0.5 kg
[2017-06-09] MEDS ORDERED: Methohexital Sodium Syr 100mg/10ml IVP ONE (07:21)
[2017-06-09] MEDS ORDERED: Norco 5mg/325mg tab ONE (07:21)
[2017-06-09] MEDS ORDERED: Succinylcholine 20mg/ml 10ml vial ONE (07:21)
[2017-06-09] MEDS ORDERED: NS 500ML IV ONE (07:21)
[2017-06-09] MEDS ORDERED: Sodium Chloride 500ML 500 ML IV ONE (08:50)
[2017-06-09] MEDS ORDERED: Norco 5mg/325mg tab ORAL PRN (08:50)
--- NOTE | 2017-06-15 16:41 | IOP Daily Group Progress Note ---
IOP Daily Group Progress Note Treatment Plan/Target Problem: Date: Jun 15, 2017 Problem: depression Program: reflections Group Reflections - Wednesday: group 3 (11:30am-12:15pm) Therapy Focus/Approach of Group: symptoms Goal(s) of Group: coping tools for symptoms, coping with change, identify triggers to symptoms, symptom management, warning signs of decompensation Observations: anxious, constricted affect, focused, participated, self disclosing Staff Intervention: clarified pt issues, facilitated discussion, provided reassurance, provided support, summarized, validated feelings Staff Intervention: Symptoms Group- Focus on self-care, coping tools to improve activities of daily living and other parts of our life one would like to improve or change. The focus was on letting go of things we cannot control and taking active step in change things that are in our control. The pt discussed her current housing crisis. "I was evicted a month ago and I am currently staying at different friend homes. on a temporary basis but it is uncomfortable because I have to walk on egg shells. I finally found a work at the [facility] who seem to know what she is doing and I trust her. She is help me find housing and I just have to remain patient . Overall I am doing better than I was in the past. I know that losing my temper will not help the situation." LORA GANN Jun 15, 2017 16:41
== END 2017-06-19 | disposition home or self-care (01) ==
LOC: ECT 07:20
DX: F33.2 Major depressive disorder, recurrent severe without psychotic features (principal)
CPT/HCPCS: 90870; J0330; J3360; J7040

== ENCOUNTER 2017-07-07 06:51 | Outpatient (RCR) | payer MEDICARE, OTHER ==
[~2017-07-07] VITALS: Ht 33 cm; Wt 0.5 kg
[2017-07-07] MEDS ORDERED: NS 500ML IV ONE (06:52)
[2017-07-07] MEDS ORDERED: Succinylcholine 20mg/ml 10ml vial ONE (06:52)
[2017-07-07] MEDS ORDERED: Methohexital Sodium Syr 100mg/10ml IVP ONE (06:52)
[2017-07-07] MEDS ORDERED: Norco 5mg/325mg tab ONE (06:52)
[2017-07-07 09:22] VITALS: BP 158/89
[2017-07-07] MEDS ORDERED: Sodium Chloride 500ML 500 ML IV ONE (09:33)
--- NOTE | 2017-07-09 14:04 | IOP Daily Group Progress Note ---
IOP Daily Group Progress Note Treatment Plan/Target Problem: Date: Jul 09, 2017 Problem: depression Program: reflections Group Reflections - Wednesday: group 1 (9:40am-10:25am) Therapy Focus/Approach of Group: process Goal(s) of Group: identify mood, verbalize current thoughts and mood Response/Progress Noted: PLEASE DISREGARD. This draft done in error, should have been in IOP notes. BENEDICTO PAN Jul 09, 2017 14:04
--- NOTE | 2017-07-17 03:00 | Reflections ---
Date: 07/15/2017 SUBJECTIVE: The patient is withdrawn, guarded, anxious, and internally preoccupied. Denies any new complaints. MENTAL STATUS EVALUATION: Alert and oriented to self and situation. Mood is anxious. Affect is appropriate. Thought process is linear. Cognition is intact. Insight and judgment is fair. DIAGNOSIS: Major depression. PLAN: Continue with current management. No new symptoms, sedation, or side effects. Medications reviewed. Chart reviewed. Case discussed with staff. Marc Rowan M.D. DR: RACQUEL JOB#: [id number] CC: ENIO
--- NOTE | 2017-07-17 03:30 | Reflections ---
Date: 07/15/2017 SUBJECTIVE: The patient is doing fairly well. Compliant with care and follows directions. Denies any new complaints. MENTAL STATUS EVALUATION: Alert and oriented to self and situation. Mood is anxious. Affect is appropriate. Thought process is linear. Cognition is intact. Impulse control, insight, and judgment is fair. DIAGNOSIS: Major depression. PLAN: Continue with current management. Continue to monitor symptoms and behavior. Medications reviewed. Chart reviewed. Case discussed with staff. We will continue to monitor the case. Marc Rowan M.D. DR: RACQUEL JOB#: [id number] CC: ENIO
== END 2017-07-20 | disposition home or self-care (01) ==
LOC: ECT 06:51
DX: F33.2 Major depressive disorder, recurrent severe without psychotic features (principal)
CPT/HCPCS: 90870; J0330; J3360; J7040

== ENCOUNTER 2017-08-04 07:21 | Outpatient (RCR) | payer MEDICARE, MEDICAID ==
[~2017-08-04] VITALS: Ht 172.7 cm; Wt 64.0 kg
[2017-08-04] MEDS ORDERED: Methohexital Sodium Syr 100mg/10ml IVP ONE (07:22)
[2017-08-04] MEDS ORDERED: NS 500ML ONE (07:22)
[2017-08-04] MEDS ORDERED: Succinylcholine 20mg/ml 10ml vial ONE (07:22)
[2017-08-04] MEDS ORDERED: Norco 5mg/325mg tab ONE (07:22)
[2017-08-04 09:09] VITALS: BP 132/82
[2017-08-04] MEDS ORDERED: Norco 5mg/325mg tab ORAL PRN (09:24)
[2017-08-04] MEDS ORDERED: Sodium Chloride 500ML 500 ML IV ONE (09:24)
[2017-08-04 09:25] VITALS: BP 140/75
[2017-08-04 09:30] VITALS: BP 152/76
[2017-08-04 09:35] VITALS: BP 132/82
[2017-08-04 09:40] VITALS: BP 132/74
== END 2017-08-19 | disposition home or self-care (01) ==
LOC: ECT 07:21
DX: F33.2 Major depressive disorder, recurrent severe without psychotic features (principal)
CPT/HCPCS: 90870; J0330; J3360; J7040

== ENCOUNTER 2017-09-01 07:21 | Outpatient (RCR) | payer MEDICARE, MEDICAID ==
[~2017-09-01] VITALS: Ht 172.7 cm; Wt 64.0 kg
[2017-09-01] MEDS ORDERED: Methohexital Sodium Syr 100mg/10ml IVP ONE (07:22)
[2017-09-01] MEDS ORDERED: NS 500ML ONE (07:22)
[2017-09-01] MEDS ORDERED: Norco 5mg/325mg tab ONE (07:22)
[2017-09-01] MEDS ORDERED: Succinylcholine 20mg/ml 10ml vial ONE (07:22)
[2017-09-01 08:25] VITALS: BP 182/100
[2017-09-01] MEDS ORDERED: Sodium Chloride 500ML 500 ML IV ONE (09:11)
[2017-09-01] MEDS ORDERED: Norco 5mg/325mg tab ORAL PRN (09:11)
[2017-09-01 09:15] VITALS: BP 147/80
[2017-09-01 09:20] VITALS: BP 139/93
[2017-09-01 09:25] VITALS: BP 152/84
[2017-09-01 09:30] VITALS: BP 150/88
--- NOTE | 2017-09-06 13:48 | IOP Daily Group Progress Note ---
IOP Daily Group Progress Note Treatment Plan/Target Problem: Date: Sep 06, 2017 Problem: depression Program: reflections Group Reflections - Wednesday: group 1 (9:40am-10:25am) Therapy Focus/Approach of Group: process Goal(s) of Group: communication skills, decreasing isolation Observations: animated, manic Staff Intervention: facilitated discussion, provided psycho-education Response/Progress Noted: Pt. is elevated to the point of being almost hypo-manic. She is somewhat flippant. She says her goal is to "stay out of the Holiday Blues." Diomedese alludes to doing an OK job of that. She IDs a goal to continue working on this and to support peers. HAMIDA FISH Sep 06, 2017 13:48
--- NOTE | 2017-09-09 14:15 | IOP Daily Group Progress Note ---
IOP Daily Group Progress Note Treatment Plan/Target Problem: Date: Sep 09, 2017 Problem: impaired thoughts Program: reflections Group Reflections - : group 1 (9:40am-10:25am) Therapy Focus/Approach of Group: process Goal(s) of Group: explore relationships to family, identify activities to improve mood, identify mood, impact of current issues on mood, interpersonal relationships, positive thoughts to improve mood, verbalize current thoughts and mood Observations: animated, anxious, constricted affect, participated Staff Intervention: assessed for safety/suicidality, assessed pt's current mood , clarified pt issues, facilitated discussion, provided support, reflective listening, summarized Staff Intervention: Process: Therapist has patients identify current mood and feelings. Therapist provided individuals a safe and comfortable place where they can work out problems and emotional issues. The pt asked where she is emotionally between 1- 10 pt said she is at a 8. "I am doing good and I am looking forward to enjoying the holidays" LORA GANN Sep 09, 2017 14:15
--- NOTE | 2017-09-10 14:10 | IOP Daily Group Progress Note ---
IOP Daily Group Progress Note Treatment Plan/Target Problem: Date: Sep 10, 2017 Problem: impaired thoughts Program: reflections Group Reflections - Wednesday: group 1 (9:40am-10:25am) Therapy Focus/Approach of Group: process Goal(s) of Group: explore relationships to family, identify mood, impact of current issues on mood, interpersonal relationships, verbalize current thoughts and mood Observations: attentive, constricted affect, guarded, participated Staff Intervention: encouraged patient participation, facilitated discussion, provided support, summarized, validated feelings Staff Intervention: Process: Therapist has patients identify current mood and feelings. Therapist provided individuals a safe and comfortable place where they can work out problems and emotional issues. Therapist encouraged patients to provide feedback and support to each other. The pt stated "I am doing good today. I feel fortunate that I have a decent place to live not after going through a struggle the early part of this year. Things in the moment are really good." LORA GANN Sep 10, 2017 14:10
--- NOTE | 2017-09-15 16:10 | IOP Daily Group Progress Note ---
IOP Daily Group Progress Note Treatment Plan/Target Problem: Date: Sep 15, 2017 Problem: depression Program: reflections Group - Wednesday: group 2 (10:35am-11:20am) Therapy Focus/Approach of Group: skills Goal(s) of Group: communication skills, decreasing isolation, interpersonal relationships, support systems Observations: animated, anxious, depressed mood, engaged Staff Intervention: facilitated discussion, provided psycho-education Response/Progress Noted: Pt. non-verbally expresses her support of certain aspects of group Norms and Culture. She responds favorably to the idea that a review of Norms and Culture is, in part, designed to increase the level of compassion that all participants have for one another. HAMIDA FISH Sep 15, 2017 16:10
--- NOTE | 2017-09-15 16:18 | IOP Daily Group Progress Note ---
IOP Daily Group Progress Note Treatment Plan/Target Problem: Date: Sep 15, 2017 Problem: depression Program: reflections Group - Wednesday: group 3 (11:30am-12:15pm) Therapy Focus/Approach of Group: symptoms Goal(s) of Group: communication skills, counteracting negative thinking, decreasing isolation, interpersonal relationships, positive thoughts to improve mood, support systems Observations: anxious, depressed mood, engaged, focused, sad Staff Intervention: assessed pt's current mood, assisted identifying coping tools, assisted with identifying symptoms, assisted with problem solving, facilitated discussion, provided psycho-education, provided reassurance, provided support Response/Progress Noted: Pt. 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 Content of group focusses on the following main themes: need to involve an MD to evaluate physical conditions and both prescribe and refer as that professional sees fit, importance of patient keeping mind open to the possibility of a positive outcome (rather then get caught up in anxious and distorted predictions). Pt. receives positive feedback from continuous improvement facilitator for her supportive interactions with peers. HAMIDA FISH Sep 15, 2017 16:18
--- NOTE | 2017-09-16 14:52 | IOP Daily Group Progress Note ---
IOP Daily Group Progress Note Treatment Plan/Target Problem: Date: Sep 16, 2017 Problem: depression Program: reflections Group Reflections - : group 1 (9:40am-10:25am) Therapy Goal(s) of Group: coping tools for symptoms, symptom management Observations: attentive, depressed mood, negatively focused, participated spontaneously, participating actively, smiled when appropriate Staff Intervention: assessed for safety/suicidality, assisted identifying coping tools, facilitated discussion, provided psycho-education, provided support, reframed, validated feelings, validated progress Staff Intervention: Check in Group. Patients spoke about how they feel, what mood they are in and or any issue that they need support from the group in process and dealing with. Response/Progress Noted: insight leader and group members assisted patient in process feelings and in providing patient with acceptance and support. Patients response, I just get down this time of year. I feel it in the body. I try to keep things light from being overwhelmed and I'm managing so far. insight leader and group members provided patient with additional feedback and emotional attunement. Assessed patients safety, patient denied that they are exposing self to any dangerous behaviors, activities and or plan/intentions SERENA RAMIREZ Sep 16, 2017 14:52
--- NOTE | 2017-09-16 15:53 | IOP Daily Group Progress Note ---
IOP Daily Group Progress Note Treatment Plan/Target Problem: Date: Sep 16, 2017 Problem: depression Program: reflections Group Reflections - : group 2 (10:35am-11:20am) Therapy Focus/Approach of Group: skills Goal(s) of Group: explore relationships to family, interpersonal relationships , support systems Observations: animated, attentive, depressed mood, engaged, participated spontaneously Staff Intervention: facilitated discussion, provided support, validated progress Response/Progress Noted: Pt. volunteers to tell a "Rabbi story" designed to illustrate aspects of group norms and culture. She does so effectively, capturing the main themes and helping peers. She is given positive feedback for this. HAMIDA FISH Sep 16, 2017 15:53
--- NOTE | 2017-09-16 15:57 | IOP Daily Group Progress Note ---
IOP Daily Group Progress Note Treatment Plan/Target Problem: Date: Sep 16, 2017 Problem: depression, impaired thoughts Program: reflections Group Reflections - : group 3 (11:30am-12:15pm) Therapy Focus/Approach of Group: symptoms Goal(s) of Group: coping tools for symptoms, counteracting negative thinking, medication compliance, positive thoughts to improve mood Observations: attentive, depressed mood, irritable, resistant Staff Intervention: assisted identifying coping tools, assisted with identifying symptoms, assisted with problem solving, facilitated discussion, provided psycho-education Response/Progress Noted: During a discussion on co-morbidity of mental illness and substance use disorders, pt. insists that this is due to "self-medicating" and is quite resistant to accepting that the clinical evidence does not support this. HAMIDA FISH Sep 16, 2017 15:57
--- NOTE | 2017-09-17 14:39 | IOP Daily Group Progress Note ---
IOP Daily Group Progress Note Treatment Plan/Target Problem: Date: Sep 17, 2017 Problem: depression Program: reflections Group Reflections - Wednesday: group 1 (9:40am-10:25am) Therapy Focus/Approach of Group: process Goal(s) of Group: impact of current issues on mood, interpersonal relationships , verbalize current thoughts and mood Observations: anxious, attentive, concrete thinking, constricted affect, depressed mood, nervous, participated Staff Intervention: facilitated discussion, normalized feelings, provided support, summarized, validated feelings Response/Progress Noted: Process: Therapist has patients identify current mood and feelings. Therapist provided individuals a safe and comfortable place where they can work out problems and emotional issues. The pt stated "I am having chronic back pain for several week. It makes me tired and low energy. In the past it could trigger my depression. However I am more aware of my triggers and I am trying to use coping skills. This weekend I am having a new wildlife removal specialist come to my home on Wed. and Wednesday. So I won't be alone. " LORA GANN Sep 17, 2017 14:39
--- NOTE | 2017-09-17 16:21 | IOP Daily Group Progress Note ---
IOP Daily Group Progress Note Treatment Plan/Target Problem: Date: Sep 17, 2017 Problem: depression Program: reflections Group Reflections - Wednesday: group 2 (10:35am-11:20am) Therapy Focus/Approach of Group: skills Goal(s) of Group: communication skills, counteracting negative thinking, decreasing isolation, establishing appropriate boundaries, explore relationships to family, positive thoughts to improve mood Observations: attentive, blunted, engaged, positive mood, relaxed Staff Intervention: encouraged patient participation, facilitated discussion, provided psycho-education Response/Progress Noted: Pt, is attentive and makes attempts to be genuinely supportive with peers. She does not self disclose about any of her own struggles. HAMIDA FISH Sep 17, 2017 16:21
--- NOTE | 2017-09-17 16:25 | IOP Daily Group Progress Note ---
IOP Daily Group Progress Note Treatment Plan/Target Problem: Date: Sep 17, 2017 Problem: depression Program: reflections Group Reflections - Wednesday: group 3 (11:30am-12:15pm) Therapy Focus/Approach of Group: symptoms Goal(s) of Group: establishing appropriate boundaries, explore relationships to family, improving self esteem, interpersonal relationships, support systems Observations: animated, attentive, depressed mood, engaged Staff Intervention: facilitated discussion, provided psycho-education Response/Progress Noted: Pt. continues with depressed mood but pleasant affect. She is attentive and appears to track conversation. She makes positive statements on the occasion of undersigned having last day at Reflections. HAMIDA FISH Sep 17, 2017 16:25
== END 2017-09-19 | disposition home or self-care (01) ==
LOC: ECT 07:21
DX: F33.2 Major depressive disorder, recurrent severe without psychotic features (principal)
CPT/HCPCS: 90870; J0330; J3360; J7040

== ENCOUNTER 2017-09-29 06:15 | Outpatient (RCR) | payer MEDICARE, MEDICAID ==
[~2017-09-29] VITALS: Ht 172.7 cm; Wt 64.0 kg
[2017-09-29] MEDS ORDERED: Norco 5mg/325mg tab ONE (06:16)
[2017-09-29] MEDS ORDERED: NS 500ML ONE (06:16)
[2017-09-29] MEDS ORDERED: Succinylcholine 20mg/ml 10ml vial ONE (06:16)
[2017-09-29] MEDS ORDERED: Methohexital Sodium Syr 100mg/10ml IVP ONE (06:16)
[2017-09-29 09:12] VITALS: BP 194/85
[2017-09-29] MEDS ORDERED: Atropine Sulfate 0.4mg/ml inj IVP PRN (09:33)
[2017-09-29] MEDS ORDERED: Sodium Chloride 500ML 500 ML IV ONE (09:33)
[2017-09-29 09:35] VITALS: BP 142/69
[2017-09-29 09:40] VITALS: BP 123/76
[2017-09-29 09:45] VITALS: BP 144/99
[2017-09-29 09:50] VITALS: BP 150/89
--- NOTE | 2017-10-18 16:30 | IOP Daily Group Progress Note ---
IOP Daily Group Progress Note Treatment Plan/Target Problem: Date: Oct 18, 2017 Problem: depression Program: reflections Group Reflections - Wednesday: group 1 (9:40am-10:25am) Therapy Goal(s) of Group: coping tools for symptoms, symptom management Observations: anxious, fidgety, nervous, positive mood, self disclosing, smiled when appropriate Staff Intervention: assessed for safety/suicidality, facilitated discussion, provided psycho-education, provided reassurance, provided redirection, provided support, reframed, validated feelings, validated progress Staff Intervention: Check in Group. Patients spoke about how they feel, what mood they are in and or any issues that they need support from the group in process and dealing with. semiconductor processing group leader and group members assisted patient in process feelings and in providing patient with acceptance and support. Response/Progress Noted: Patient gained more objectivity and perspective to better manage their symptoms. semiconductor processing group leader and group members provided patient with additional feedback and emotional attunement. Assessed patients safety, patient denied that they are exposing self to any dangerous behaviors, activities and or plan /intentions. SERENA RAMIREZ Oct 18, 2017 16:29
--- NOTE | 2017-10-20 14:24 | IOP Daily Group Progress Note ---
IOP Daily Group Progress Note Treatment Plan/Target Problem: Date: Oct 20, 2017 Problem: depression Program: reflections Group - Wednesday: group 1 (9:40am-10:25am) Therapy Focus/Approach of Group: process Goal(s) of Group: identify mood, verbalize current thoughts and mood Observations: anxious, concrete thinking, constricted affect, depressed mood, low energy, participated, self disclosing, responded to prompts Staff Intervention: assessed for safety/suicidality, assessed pt's current mood , provided support Response/Progress Noted: CHECK IN Pt participated in the group by verbalizing her current thoughts and connected mood. Pt benefited from the session by being offered space to comfortably share any feelings she currently has. A Cognitive Behavioral Therapy model was utilized to encourage Pt to identify one way to either maintain her positive mood or alter her negative mood into a more desirable mood. Pt reported feeling "bored and wondering what I was going to do for 5 days per week when I was recently away from this program" and can maintain/shift that feeling by "discovering the [employer] in [place] where I connected with [employer] and prayed for everyone here". Pt denied suicidal ideation and plan. BENEDICTO PAN Oct 20, 2017 14:24
== END 2017-10-20 | disposition home or self-care (01) ==
LOC: ECT 06:15
DX: F33.2 Major depressive disorder, recurrent severe without psychotic features (principal); F34.1 Dysthymic disorder; F60.9 Personality disorder, unspecified; J45.909 Unspecified asthma, uncomplicated; Z85.828 Personal history of other malignant neoplasm of skin
CPT/HCPCS: 90870; J0330; J3360; J7040

== ENCOUNTER 2017-10-27 05:38 | Outpatient (RCR) | payer MEDICARE, OTHER ==
[~2017-10-27] VITALS: Ht 172.7 cm; Wt 64.0 kg
[2017-10-27] MEDS ORDERED: NS 500ML ONE (05:39)
[2017-10-27] MEDS ORDERED: Methohexital Sodium Syr 100mg/10ml IVP ONE (05:39)
[2017-10-27] MEDS ORDERED: Succinylcholine 20mg/ml 10ml vial ONE (05:39)
[2017-10-27] MEDS ORDERED: Norco 5mg/325mg tab ONE (05:39)
[2017-10-27 09:09] VITALS: BP 169/113
[2017-10-27] MEDS ORDERED: Sodium Chloride 500ML 500 ML IV ONE (09:28)
[2017-10-27] MEDS ORDERED: Norco 5mg/325mg tab ORAL PRN (09:28)
[2017-10-27 09:30] VITALS: BP 151/65
[2017-10-27 09:35] VITALS: BP 151/65
[2017-10-27 09:40] VITALS: BP 167/85
[2017-10-27 09:45] VITALS: BP 164/87
== END 2017-11-17 | disposition home or self-care (01) ==
LOC: ECT 05:38
DX: F33.2 Major depressive disorder, recurrent severe without psychotic features (principal)
CPT/HCPCS: 90870; J0330; J3360; J7040

== ENCOUNTER 2017-11-24 07:08 | Outpatient (RCR) | payer MEDICARE, OTHER ==
[~2017-11-24] VITALS: Ht 172.7 cm; Wt 64.0 kg
[~2017-11-24 07:08] MED LIST changes: +Methohexital Sodium Syr 100mg/10ml IVP ONE; +NS 500ML ONE; +Norco 5mg/325mg tab ONE; +Succinylcholine 20mg/ml 10ml vial ONE
[2017-11-24 08:57] VITALS: BP 156/103
[2017-11-24] MEDS ORDERED: Norco 5mg/325mg tab ORAL PRN ×2 (09:10→09:15)
[2017-11-24] MEDS ORDERED: Sodium Chloride 500ML 500 ML IV ONE (09:10)
[2017-11-24 09:15] VITALS: BP 136/78
[2017-11-24 09:20] VITALS: BP 130/66
[2017-11-24 09:25] VITALS: BP 131/70
[2017-11-24 09:30] VITALS: BP 127/73
[2017-11-25] MEDS ORDERED: Norco 5mg/325mg tab ORAL PRN (21:00)
== END 2017-12-18 | disposition home or self-care (01) ==
LOC: ECT 07:08
DX: F33.2 Major depressive disorder, recurrent severe without psychotic features (principal)
CPT/HCPCS: 90870; J0330; J3360; J7040

== ENCOUNTER 2017-12-22 07:38 | Outpatient (RCR) | payer MEDICARE, OTHER ==
[~2017-12-22] VITALS: Ht 172.7 cm; Wt 64.0 kg
[~2017-12-22 07:38] MED LIST changes: -Methohexital Sodium Syr 100mg/10ml IVP ONE; -NS 500ML ONE; -Norco 5mg/325mg tab ONE; -Succinylcholine 20mg/ml 10ml vial ONE
[2017-12-22] MEDS ORDERED: NS 500ML ONE (07:39)
[2017-12-22] MEDS ORDERED: Methohexital Sodium Syr 100mg/10ml IVP ONE (07:39)
[2017-12-22] MEDS ORDERED: Succinylcholine 20mg/ml 10ml vial ONE (07:39)
[2017-12-22] MEDS ORDERED: Norco 5mg/325mg tab ONE (07:39)
[2017-12-22 09:15] VITALS: BP 175/106
[2017-12-22] MEDS ORDERED: Sodium Chloride 500ML 500 ML IV ONE (09:36)
[2017-12-22 09:40] VITALS: BP 143/66
[2017-12-22 09:45] VITALS: BP 153/71
[2017-12-22 09:50] VITALS: BP 153/87
[2017-12-22 09:55] VITALS: BP 145/89
[2018-01-05] MEDS ORDERED: NORVASC5 MG ORAL (10:02)
== END 2018-01-17 | disposition home or self-care (01) ==
LOC: ECT 07:38
DX: F33.2 Major depressive disorder, recurrent severe without psychotic features (principal)
CPT/HCPCS: 90870; J0330; J3360; J7040

== ENCOUNTER 2018-01-19 05:30 | Outpatient (RCR) | payer MEDICARE, OTHER ==
[~2018-01-19] VITALS: Ht 172.7 cm; Wt 64.0 kg
[~2018-01-19 05:30] MED LIST changes: +NORVASC5 MG ORAL
[2018-01-19] MEDS ORDERED: Norco 5mg/325mg tab ONE (05:31)
[2018-01-19] MEDS ORDERED: NS 500ML ONE (05:31)
[2018-01-19] MEDS ORDERED: Methohexital Sodium Syr 100mg/10ml IVP ONE (05:31)
[2018-01-19] MEDS ORDERED: Succinylcholine 20mg/ml 10ml vial ONE (05:31)
[2018-01-19 08:42] VITALS: BP 149/107
[2018-01-19] MEDS ORDERED: Norco 5mg/325mg tab ORAL PRN (09:02)
[2018-01-19] MEDS ORDERED: Sodium Chloride 500ML 500 ML IV ONE (09:02)
[2018-01-19 09:05] VITALS: BP 138/85
[2018-01-19 09:10] VITALS: BP 134/83
[2018-01-19 09:15] VITALS: BP 126/74
[2018-01-19 09:20] VITALS: BP 141/76
== END 2018-02-17 | disposition home or self-care (01) ==
LOC: ECT 05:30
DX: F33.2 Major depressive disorder, recurrent severe without psychotic features (principal)
CPT/HCPCS: 90870; J0330; J3360; J7040

== ENCOUNTER 2018-02-23 09:36 | Outpatient (RCR) | payer MEDICARE, OTHER ==
[~2018-02-23] VITALS: Ht 172.7 cm; Wt 64.0 kg
[2018-02-23 10:06] VITALS: BP 154/104
[2018-02-23] MEDS ORDERED: Sodium Chloride 500ML 500 ML IV ONE (10:16)
[2018-02-23] MEDS ORDERED: Norco 5mg/325mg tab ORAL PRN (10:16)
[2018-02-23 10:20] VITALS: BP 142/75
[2018-02-23 10:25] VITALS: BP 136/64
[2018-02-23 10:30] VITALS: BP 132/69
[2018-02-23 10:35] VITALS: BP 166/104
--- NOTE | 2018-02-28 17:04 | IOP Daily Group Progress Note ---
IOP Daily Group Progress Note Treatment Plan/Target Problem: Date: Feb 28, 2018 Problem: depression Program: reflections Group Reflections - Wednesday: group 2 (10:35am-11:20am) Therapy Goal(s) of Group: coping tools for symptoms, symptom management Observations: constricted affect, lethargic, low energy, passive, withdrawn Staff Intervention: encouraged patient participation, facilitated discussion, provided gwot ia/ilo intelligence support Intervention: Group members explored how they pretend that they're happy, alright or act as if things aright with them when in fact theyre really hurting very much inside , in pain, and falling apart. Patients shared how they became more real with themselves and how authentic experiences, which come from being honest with yourself, minimized and or resolved their symptoms. One of the questions being , I feel satisfied with myself. Response/Progress Noted: Facilitated group to provide patent with the emotional space and attunement so that patent could more full access feelings and emotional as well as the opportunity to process unresolved issues. SERENA RAMIREZ Feb 28, 2018 17:04
--- NOTE | 2018-03-03 15:21 | IOP Daily Group Progress Note ---
IOP Daily Group Progress Note Treatment Plan/Target Problem: Date: Mar 03, 2018 Problem: depression, impaired thoughts Group Reflections - : group 1 (9:40am-10:25am) Therapy Focus/Approach of Group: process Goal(s) of Group: identify mood, verbalize current thoughts and mood Goal(s) of Group: Goal(s) to identify mood and process client issues. Observations: active listening skills, engaged, made insightful comments, participated, smiled when appropriate Staff Intervention: assessed for safety/suicidality, facilitated discussion, normalized feelings, provided reassurance, provided support, validated progress Staff Intervention: Therapist had each patient check in, identifying their mood, overall level of functioning, and any issues on their mind. Therapist encouraged self disclosure , provided support, and appropriate feedback when indicated. Therapist assisted patients in processing issues and using each other as a support system. Therapist provided positive reinforcement when appropriate. Response/Progress Noted: Pt. reported her mood to be around a 4 on a scale from 1-10 (with 10 being the best possible mood). Pt. had a christiano bear with her that she was holding. When asked about it, she was quick to share that her life skill assistant women's soccer coach gave it to her this week. "She surprised me with it and gave it to me as an early birthday gift. It felt so good when she did that. So I am using it to provide comfort to myself." Therapist gave pt. much positive reinforcement for taking care of herself. Validated for her that it is an excellent intervention. Pt. seemed receptive to the observation of her healthy behavior. No risks were presented in this group. In fact, pt. ended group by making a joke and laughing. ROMÁN MEEK Mar 03, 2018 15:21
--- NOTE | 2018-03-04 15:24 | IOP Daily Group Progress Note ---
IOP Daily Group Progress Note Treatment Plan/Target Problem: Date: Mar 04, 2018 Problem: depression Program: reflections Group Reflections - Wednesday: group 3 (11:30am-12:15pm) Therapy Focus/Approach of Group: symptoms Response/Progress Noted: PLEASE IGNORE--DUPLICATE DRAFT--COMPLETE NOTE ALREADY SIGNED BENEDICTO PAN Mar 04, 2018 15:24
--- NOTE | 2018-03-07 16:40 | IOP Daily Group Progress Note ---
IOP Daily Group Progress Note Treatment Plan/Target Problem: Date: Mar 07, 2018 Problem: depression Program: reflections Group Reflections - Wednesday: group 1 (9:40am-10:25am) Therapy Goal(s) of Group: coping tools for symptoms, symptom management Observations: agitated, escalating, negatively focused, tangential thoughts Staff Intervention: assessed for safety/suicidality, encouraged patient participation, provided psycho-education, provided support, reflective listening , reframed, summarized Staff Intervention: Check in Group. In the group setting, facilitated group to provide patent with the emotional space and attunement so that patent could more full access feelings and emotional as well as the opportunity to process unresolved issues. Patients spoke about how they feel, what mood they are in and or any issues that they need support from the group in process and dealing with. senior environmental practice leader and group members assisted patient in process feelings and in providing patient with acceptance and support. Response/Progress Noted: My Neighbors are making noise again, lots of noise I know better but I'm just want to go off. I just don't care I just don't need the noise to end. I intentionally let myself get emotional about it. They have to stop. I do not have to do anything to deal with the situation. Group members and manager group home reminded patent to to civil to her neighbors and not to go off. Patent walked out of the room. Patient gained more objectivity and perspective to better manage their symptoms. Patient shared other thoughts and feelings. senior environmental practice leader and group members provided patient with additional feedback and emotional attunement. Assessed patients safety, patient denied that they are exposing self to any dangerous behaviors, activities and or plan/intentions SERENA RAMIREZ Mar 07, 2018 16:40
[2018-03-16] MEDS ORDERED: NS 500ML ONE (07:00)
[2018-03-16] MEDS ORDERED: Methohexital Sodium Syr 100mg/10ml IVP ONE (07:00)
[2018-03-16] MEDS ORDERED: Succinylcholine 20mg/ml 10ml vial ONE (07:00)
[2018-03-16] MEDS ORDERED: Norco 5mg/325mg tab ONE (07:00)
[2018-03-16 09:30] VITALS: BP 150/100
[2018-03-16] MEDS ORDERED: Norco 5mg/325mg tab ORAL ONE (09:43)
[2018-03-16] MEDS ORDERED: Sodium Chloride 500ML 500 ML IV ONE (09:43)
[2018-03-16 09:45] VITALS: BP 140/69
[2018-03-16 09:50] VITALS: BP 133/57
[2018-03-16 09:55] VITALS: BP 153/88
[2018-03-16 10:00] VITALS: BP 154/87
== END 2018-03-19 | disposition home or self-care (01) ==
LOC: ECT 09:36
DX: F33.2 Major depressive disorder, recurrent severe without psychotic features (principal)
CPT/HCPCS: 90870; J0330; J3360; J7040

== ENCOUNTER 2018-03-21 06:44 | Outpatient (RCR) | payer MEDICARE, OTHER ==
[~2018-03-21] VITALS: Ht 172.7 cm; Wt 64.0 kg
[2018-03-21] MEDS ORDERED: NS 500ML ONE (06:45)
[2018-03-21] MEDS ORDERED: Methohexital Sodium Syr 100mg/10ml IVP ONE (06:45)
[2018-03-21] MEDS ORDERED: Succinylcholine 20mg/ml 10ml vial ONE (06:45)
[2018-03-21] MEDS ORDERED: Norco 5mg/325mg tab ONE (06:45)
[2018-03-21 10:13] VITALS: BP 185/103
[2018-03-21 10:26] VITALS: BP 145/77
[2018-03-21] MEDS ORDERED: Sodium Chloride 500ML 500 ML IV ONE (10:26)
[2018-03-21] MEDS ORDERED: Norco 5mg/325mg tab ORAL PRN (10:26)
[2018-03-21 10:31] VITALS: BP 137/74
[2018-03-21 10:36] VITALS: BP 145/42
[2018-03-21 10:41] VITALS: BP 152/68
[2018-03-28] MEDS ORDERED: OMEPRAZOLE40 M1 ORAL (12:47)
[2018-03-30] MEDS ORDERED: NS 500ML ONE (06:00)
[2018-03-30] MEDS ORDERED: Norco 5mg/325mg tab ONE (06:00)
[2018-03-30] MEDS ORDERED: Succinylcholine 20mg/ml 10ml vial ONE (06:00)
[2018-03-30] MEDS ORDERED: Methohexital Sodium Syr 100mg/10ml IVP ONE (06:00)
[2018-03-30 11:20] VITALS: BP 190/127
[2018-03-30] MEDS ORDERED: Norco 5mg/325mg tab ORAL PRN (11:42)
[2018-03-30 11:45] VITALS: BP 135/66
[2018-03-30 11:50] VITALS: BP 140/81
[2018-03-30 11:55] VITALS: BP 132/78
[2018-03-30 12:00] VITALS: BP 132/76
[2018-04-04] MEDS ORDERED: Norco 5mg/325mg tab ORAL PRN (10:46)
[2018-04-04] MEDS ORDERED: Sodium Chloride 500ML 500 ML IV ONE (10:46)
[2018-04-04 10:50] VITALS: BP 143/82
[2018-04-04 10:55] VITALS: BP 123/67
[2018-04-04 11:00] VITALS: BP 155/96
[2018-04-04 11:05] VITALS: BP 148/86
[2018-04-04 11:15] VITALS: BP 145/89
[2018-04-18] MEDS ORDERED: Succinylcholine 20mg/ml 10ml vial ONE (08:00)
[2018-04-18] MEDS ORDERED: NS 500ML ONE (08:00)
[2018-04-18] MEDS ORDERED: Methohexital Sodium Syr 100mg/10ml IVP ONE (08:00)
[2018-04-18] MEDS ORDERED: Norco 5mg/325mg tab ONE (08:00)
[2018-04-18 08:33] VITALS: BP 150/94
[2018-04-18] MEDS ORDERED: Norco 5mg/325mg tab ORAL PRN (09:47)
[2018-04-18] MEDS ORDERED: Sodium Chloride 500ML 500 ML IV ONE (09:47)
[2018-04-18 09:50] VITALS: BP 138/77
[2018-04-18 09:55] VITALS: BP 146/74
[2018-04-18 10:00] VITALS: BP 158/78
[2018-04-18 10:05] VITALS: BP 145/80
== END 2018-04-19 | disposition home or self-care (01) ==
LOC: ECT 06:44
DX: F33.2 Major depressive disorder, recurrent severe without psychotic features (principal)
CPT/HCPCS: 90870; J0330; J3360; J7040

== ENCOUNTER 2018-05-09 05:55 | Outpatient (RCR) | payer MEDICARE, OTHER ==
[~2018-05-09] VITALS: Ht 33 cm; Wt 0.5 kg
[~2018-05-09 05:55] MED LIST changes: +OMEPRAZOLE40 M1 ORAL
[2018-05-09] MEDS ORDERED: NS 500ML ONE (05:56)
[2018-05-09] MEDS ORDERED: Succinylcholine 20mg/ml 10ml vial ONE (05:56)
[2018-05-09] MEDS ORDERED: Methohexital Sodium Syr 100mg/10ml IVP ONE (05:56)
[2018-05-09] MEDS ORDERED: Norco 5mg/325mg tab ONE (05:56)
[2018-05-09 08:08] VITALS: BP 179/135
[2018-05-09] MEDS ORDERED: Norco 5mg/325mg tab ORAL PRN (08:21)
[2018-05-09] MEDS ORDERED: Sodium Chloride 500ML 500 ML IV ONE (08:21)
[2018-05-09 08:25] VITALS: BP 126/53
[2018-05-09 08:30] VITALS: BP 119/75
[2018-05-09 08:35] VITALS: BP 131/67
[2018-05-09 08:40] VITALS: BP 132/75
== END 2018-05-20 | disposition home or self-care (01) ==
LOC: ECT 05:55
DX: F33.2 Major depressive disorder, recurrent severe without psychotic features (principal)
CPT/HCPCS: 90870; J0330; J3360; J7040

== ENCOUNTER 2018-06-06 08:07 | Outpatient (RCR) | payer MEDICARE, OTHER ==
[~2018-06-06] VITALS: Ht 30.5 cm; Wt 0.5 kg
[2018-06-06 08:05] VITALS: BP 171/106
[2018-06-06] MEDS ORDERED: Norco 5mg/325mg tab ONE (08:08)
[2018-06-06] MEDS ORDERED: NS 500ML ONE (08:08)
[2018-06-06] MEDS ORDERED: Succinylcholine 20mg/ml 10ml vial ONE (08:08)
[2018-06-06] MEDS ORDERED: Methohexital Sodium Syr 100mg/10ml IVP ONE (08:08)
[2018-06-06] MEDS ORDERED: Norco 5mg/325mg tab ORAL PRN (08:19)
[2018-06-06] MEDS ORDERED: Sodium Chloride 500ML 500 ML IV ONE (08:19)
[2018-06-06 08:20] VITALS: BP 145/65
[2018-06-06 08:25] VITALS: BP 139/76
[2018-06-06 08:30] VITALS: BP 143/77
[2018-06-06 08:35] VITALS: BP 137/81
== END 2018-06-19 | disposition home or self-care (01) ==
LOC: ECT 08:07
DX: F33.2 Major depressive disorder, recurrent severe without psychotic features (principal)
CPT/HCPCS: 90870; J0330; J3360; J7040

== ENCOUNTER 2018-07-04 08:39 | Outpatient (RCR) | payer MEDICARE, OTHER ==
[~2018-07-04] VITALS: Ht 30.5 cm; Wt 0.5 kg
[2018-07-06] MEDS ORDERED: Succinylcholine 20mg/ml 10ml vial ONE (06:00)
[2018-07-06] MEDS ORDERED: Methohexital Sodium Syr 100mg/10ml IVP ONE (06:00)
[2018-07-06] MEDS ORDERED: NS 500ML ONE (06:00)
[2018-07-06] MEDS ORDERED: Norco 5mg/325mg tab ONE (06:00)
[2018-07-06 10:41] VITALS: BP 174/102
[2018-07-06] MEDS ORDERED: Sodium Chloride 500ML 500 ML IV ONE (10:52)
[2018-07-06] MEDS ORDERED: Norco 5mg/325mg tab ORAL PRN (10:52)
[2018-07-06 10:55] VITALS: BP 146/77
[2018-07-06 11:00] VITALS: BP 139/73
[2018-07-06 11:05] VITALS: BP 142/86
[2018-07-06 11:10] VITALS: BP 144/87
== END 2018-07-20 | disposition home or self-care (01) ==
LOC: ECT 08:39
DX: F33.2 Major depressive disorder, recurrent severe without psychotic features (principal)
CPT/HCPCS: 90870; J0330; J3360; J7040

== ENCOUNTER 2018-08-01 05:30 | Outpatient (RCR) | payer MEDICARE, OTHER ==
[~2018-08-01] VITALS: Ht 172.7 cm; Wt 64.0 kg
[2018-08-01] MEDS ORDERED: Methohexital Sodium 500mg Vial IVP ONE (05:31)
[2018-08-01] MEDS ORDERED: NS 500ML ONE (05:31)
[2018-08-01] MEDS ORDERED: Norco 5mg/325mg tab ONE (05:31)
[2018-08-01] MEDS ORDERED: Succinylcholine 20mg/ml 10ml vial ONE (05:31)
[2018-08-01 09:15] VITALS: BP 185/107
[2018-08-01] MEDS ORDERED: Sodium Chloride 500ML 500 ML IV ONE (09:26)
[2018-08-01] MEDS ORDERED: Norco 5mg/325mg tab ORAL PRN (09:26)
[2018-08-01 09:30] VITALS: BP 153/81
[2018-08-01 09:35] VITALS: BP 149/87
[2018-08-01 09:40] VITALS: BP 163/82
[2018-08-01 09:45] VITALS: BP 151/92
[2018-08-01 10:38] VITALS: BP 140/92
== END 2018-08-19 | disposition home or self-care (01) ==
LOC: ECT 05:30
DX: F33.2 Major depressive disorder, recurrent severe without psychotic features (principal)
CPT/HCPCS: 90870; J0330; J3360; J3490; J7040

== ENCOUNTER 2018-08-29 07:45 | Outpatient (RCR) | payer MEDICARE, OTHER ==
[~2018-08-29] VITALS: Ht 30.5 cm; Wt 0.5 kg
[2018-08-29] MEDS ORDERED: Methohexital Sodium Syr 100mg/10ml IVP ONE (07:46)
[2018-08-29] MEDS ORDERED: Succinylcholine 20mg/ml 10ml vial ONE (07:46)
[2018-08-29] MEDS ORDERED: NS 500ML ONE (07:46)
[2018-08-29] MEDS ORDERED: Norco 5mg/325mg tab ONE (07:46)
[2018-08-29 09:23] VITALS: BP 194/107
[2018-08-29] MEDS ORDERED: Norco 5mg/325mg tab ORAL PRN (09:32)
[2018-08-29] MEDS ORDERED: Sodium Chloride 500ML 500 ML IV ONE (09:32)
[2018-08-29 09:35] VITALS: BP 135/97
[2018-08-29 09:40] VITALS: BP 110/79
[2018-08-29 09:45] VITALS: BP 153/84
[2018-08-29 09:50] VITALS: BP 142/77
== END 2018-09-19 | disposition home or self-care (01) ==
LOC: ECT 07:45
DX: F33.2 Major depressive disorder, recurrent severe without psychotic features (principal)
CPT/HCPCS: 90870; J0330; J3360; J7040